=== PATIENT | female | born 1975 | race African-American/Black ===

== ENCOUNTER 2019-04-20 17:39 | Emergency (ER) | payer MEDICAID ==
[~2019-04-20] VITALS: Ht 165.1 cm; Wt 68.5 kg
[2019-04-20 17:53] VITALS: BP 132/77
--- NOTE | 2019-04-20 17:59 | NUR ---
AMBULATED TO BED 08 WITH STEADY GAIT.
--- NOTE | 2019-04-20 18:06 | NUR ---
PT BIB SELF C/O RT EYE SWELLING AND REDNESS X5 DAYS AND LT EYE REDNESS X2 DAYS. PT REPORTS 3/10 PAIN IN LT EYE WHEN RUBBING EYES. PT SAW PCP ON MONDAY AND RECIEVED SULFACETAMIDE EYE DROPS AND CEPHALEXIN FOR CONJUNTIVITIS. PT STATES GRANDSON HAD CONJUNTIVITIS 2 WEEKS AGO. MEDHX:DENIES RX:DENIES
--- NOTE | 2019-04-20 18:46 | NUR ---
PT AMBULATED TO THE RESTROOM AT THIS TIME
--- NOTE | 2019-04-20 19:08 | NUR ---
RECEIVED REPORT FROM PAVAN GALVEZ. PT IN BED RESTING. VSS AT THIS TIME.
--- NOTE | 2019-04-20 19:23 | NUR ---
DR. YU EVALUATING PT AT BEDSIDE.
[2019-04-20 19:30] VITALS: BP 134/76
--- NOTE | 2019-04-20 19:30 | NUR ---
Patient discharged with v/s stable. Written and verbal after care instructions given and explained. Patient alert, oriented and verbalized understanding of instructions. Ambulatory with steady gait. All questions addressed prior to discharge. ID band removed. Patient advised to follow up with PMD. Rx of CIPRODEX 0.3%-0.1% OTIC SUSPENSION given. Patient educated on indication of medication including possible reaction and side effects. Opportunity to ask questions provided and answered.
== END 2019-04-20 19:30 | disposition home or self-care (01) ==
LOC: MED 17:39
DX: H10.89 Other conjunctivitis (principal)
CPT/HCPCS: 99283

== ENCOUNTER 2019-04-23 11:15 | Emergency (ER) | payer MEDICAID ==
[~2019-04-23] VITALS: Ht 165.1 cm; Wt 68.5 kg
[2019-04-23 11:27] VITALS: BP 133/82
[2019-04-23 12:31] VITALS: BP 127/75
== END 2019-04-23 12:30 | disposition home or self-care (01) ==
LOC: MED 11:15
DX: H10.9 Unspecified conjunctivitis (principal); R03.0 Elevated blood-pressure reading, without diagnosis of hypertension
CPT/HCPCS: 99283

== ENCOUNTER 2019-08-13 13:11 | Emergency (ER) | payer MEDICAID ==
[~2019-08-13] VITALS: Ht 165.1 cm; Wt 65.8 kg
[2019-08-13 13:19] VITALS: BP 149/92
--- NOTE | 2019-08-13 13:51 | NUR ---
C/O L SHOULDER PAIN 03/30 X 4 DAYS. DENIES TRAUMA/INJURY. +CMS. PER PATIENT, PAIN STARTED WHEN SHE WAS LAYING ON HER ARM/SIDE. PAIN IS NOW AGGRAVATED BY LAYING STILL. ALLEVIATED WITH ROM. MEDICATED WITH MOTRIN THIS AM, SOME RELIEF. VS STABLE, PT ALERT AND AWAKE. AMBULATORY WITH STEADY GAIT. MED HX: C SECTION, APPENDECTOMY
--- NOTE | 2019-08-13 13:52 | NUR ---
NO DEFORMITY NOTED
[2019-08-13] MEDS ORDERED: MORPHINE SULFATE 4 MG/ML SYR IM ONE (14:45)
[2019-08-13] MEDS ORDERED: DEXAMETHASONE 10 MG/ML VIAL IM ONE (14:45)
--- NOTE | 2019-08-13 14:55 | NUR ---
DECADRON AND MORPHINE IM ADMINISTERED
--- NOTE | 2019-08-13 14:56 | NUR ---
XRAY AT BEDSIDE
--- NOTE | 2019-08-13 15:50 | NUR ---
OLI APPLIED BY JOSE BARRY, PULSES WNL. PT VERBALIZES UNDERSTANDING OF USE
[2019-08-13 15:52] VITALS: BP 143/84
--- NOTE | 2019-08-13 15:52 | NUR ---
NADR AT THIS TIME, PAIN 4/10
--- NOTE | 2019-08-13 15:52 | NUR ---
Patient discharged with v/s stable. Written and verbal after care instructions given and explained REGARDING SHOULDER SPRAIN. Patient alert, oriented and verbalized understanding of instructions. Ambulatory with steady gait. All questions addressed prior to discharge. ID band removed. Patient advised to follow up with PMD. Rx of VOLTAREN AND FLEXERIL given. Patient educated on indication of medication including possible reaction and side effects. Opportunity to ask questions provided and answered.
== END 2019-08-13 15:52 | disposition home or self-care (01) ==
LOC: MED 13:11
DX: S43.402A Unspecified sprain of left shoulder joint, initial encounter (principal); S46.912A Strain of unspecified muscle, fascia and tendon at shoulder and upper arm level, left arm, initial encounter; M47.812 Spondylosis without myelopathy or radiculopathy, cervical region; X58.XXXA Exposure to other specified factors, initial encounter; Y92.89 Other specified places as the place of occurrence of the external cause; Y93.89 Activity, other specified; Y99.8 Other external cause status
CPT/HCPCS: 72040; 73030; 96372; 99283; J1100; J2270

== ENCOUNTER 2019-08-24 21:13 | Emergency (ER) | payer MEDICAID ==
[~2019-08-24] VITALS: Ht 165.1 cm; Wt 68.0 kg
[2019-08-24 21:15] VITALS: BP 130/90
--- NOTE | 2019-08-24 21:15 | NUR ---
to chair B ambulatory, nasla swab sent to lab
[2019-08-24] MEDS ORDERED: ACETAMINOPHEN 325 MG TAB PO ONE (21:25)
--- NOTE | 2019-08-24 21:31 | NUR ---
PT ASSESSMENT COMPLETE. PT SEATED IN CHAIR B IN UPRIGHT POSITION. WILL CONTINUE TO MONITOR.
--- NOTE | 2019-08-24 22:22 | NUR ---
PT AMBULATED TO BED 12
--- NOTE | 2019-08-24 23:10 | NUR ---
DR. BASURTO AT BEDSIDE EVALUTING PT
[2019-08-24] MEDS ORDERED: OSELTAMIVIR PHOSPHATE 75 MG CAP PO ONE (23:20)
[2019-08-24] MEDS ORDERED: HYDROcodone/APAP 5/325 MG 1 TAB TAB PO ONE (23:20)
[2019-08-24] MEDS ORDERED: KETOROLAC 60 MG/2 ML VIAL IM ONE (23:20)
--- NOTE | 2019-08-25 00:10 | NUR ---
PT REPORTS 02/27 PAIN S/P MEDICATION ADMINISTRATION. DR. RAMACHANDRAN MADE AWARE.
[2019-08-25 01:31] VITALS: BP 130/90
--- NOTE | 2019-08-25 01:31 | NUR ---
Patient discharged with v/s stable. Written and verbal after care instructions given and explained. Patient alert, oriented and verbalized understanding of instructions. Ambulatory with steady gait. All questions addressed prior to discharge. ID band removed. Patient advised to follow up with PMD. Rx of NORCO, NAPROSYN AND TAMIFLU WAS given. Patient educated on indication of medication including possible reaction and side effects. Opportunity to ask questions provided and answered. PT STATED SHE NO LONGER HAD PAIN, 0/10. PT RECIEVED A WORK NOTE PER REQUEST.
== END 2019-08-25 01:31 | disposition home or self-care (01) ==
LOC: MED 21:13
DX: R50.9 Fever, unspecified (principal); R05 Cough; J02.9 Acute pharyngitis, unspecified; M79.10 Myalgia, unspecified site
CPT/HCPCS: 87804; 96372; 99284; J1885